=== PATIENT | male | born 1990 | race Caucasian/White ===

== ENCOUNTER 2020-11-25 14:00 | Emergency (ER) | payer OTHER, SELFPAY ==
[2020-11-25 14:06] VITALS: BP 121/60; PULSE 70; RESP 16; TEMP 36.7; O2SAT 97; BMI 27.7
--- NOTE | 2020-11-25 14:24 | ED.CHESTPAIN ---
HPI - Chest Pain General Chief Complaint: Chest Pain Stated Complaint: light headed, SOB, numbness in jaw/tongue, fast HR Time Seen by Provider: 11/25/20 14:20 Source: patient Mode of arrival: Ambulatory Limitations: no limitations History of Present Illness HPI narrative: Otherwise healthy 30-year-old male here for evaluation of several episodes that occurred just today. He states that he was sitting on the couch when he started feel like his heart was beating fast. He states he did feel anxious at the time. Got somewhat lightheaded. Last anywhere from 30 seconds to 1 minute and then completely resolved. It happened several more times since then. Most recently in route here to the emergency department. At the time my evaluation he denies any symptoms. Review of Systems Constitutional Constitutional: Reports system reviewed and no additional complaints, except as documented Cardiovascular Cardiovascular: Reports as per HPI Respiratory Respiratory: Reports as per HPI Gastrointestinal Gastrointestinal: Reports system reviewed and no additional complaints, except as documented Musculoskeletal Musculoskeletal: Reports system reviewed and no additional complaints, except as documented Integumentary/Breasts Skin/Breast: Reports system reviewed and no additional complaints, except as documented Neurologic Neurologic: Reports system reviewed and no additional complaints, except as documented Hematologic/Lymphatic On Anticoagulants: No Allergic/Immunologic Allergic/Immunologic: Reports system reviewed and no additional complaints, except as documented Patient History Medical History Healthy adult tobacco type: vaping alcohol intake frequency: 0-2 drinks per day Substance Use Type: does not use Exam Initial Vital Signs Initial Vital Signs: Vital Signs Temperature 98.1 F 11/25/20 14:06 Pulse Rate 70 11/25/20 14:06 Respiratory Rate 16 11/25/20 14:06 Blood Pressure 121/60 11/25/20 14:06 Pulse Oximetry 97 11/25/20 14:06 Const General: cooperative and healthy appearing HENMT Head: normal to inspection and normocephalic Eyes General: appearance normal, both eyes and all related structures Resp Auscultation: clear to auscultation bilaterally Cardio Rate: regular rate Rhythm: regular rhythm GI Inspection: normal to inspection Skin General: no rashes or lesions noted Neuro General: patient alert, patient awake and patient oriented x3 Extrem General: normal to inspection and capillary refill normal Psych Appearance: grossly normal and well kempt Course Orders Ordered: ED Orders 11/25/20 14:25 XR chest 1V Stat EKG-12 Lead Stat EKG-12 Lead Stat 11/25/20 14:35 Basic Metabolic Panel Stat Complete Blood Count AUTO DIFF Stat Magnesium Stat Troponin & CK Cardiac Panel Stat Vital Signs Vital signs: Vital Signs - 8 hr 11/25/20 14:06 11/25/20 14:41 11/25/20 15:35 Temperature 98.1 F Pulse Rate 70 66 69 Respiratory Rate 16 14 18 Blood Pressure 121/60 130/78 129/62 Pulse Oximetry 97 98 98 MDM - Chest Pain Lab Data Result diagrams: 11/25/20 14:35 11/25/20 14:35 Labs: Lab Results 11/25/20 11/25/20 11/25/20 Range/Units 14:35 14:35 14:35 WBC 5.8 (4.5-11.0) X10^3/uL RBC 4.73 (4.5-5.9) X10^6/uL Hgb 15.7 (13.5-17.5) g/dL Hct 44.9 (41-53) % MCV 94.9 (80-100) fL MCH 33.3 (26-34) PG MCHC 35.1 (30-36) % RDW 12.0 (11.6-14.8) % Plt Count 177 (150-400) X10^3/uL Neut % (Auto) 59.1 (50-75) % Lymph % (Auto) 17.3 L (25-40) % Pershing % (Auto) 9.3 (3-14) % Eos % (Auto) 13.5 H (2-4) % Baso % (Auto) 0.8 (0-2) % Neut # (Auto) 3400 (5872-9003) /uL Lymph # (Auto) 1000 L (5240-2228) /uL Pershing # (Auto) 500 (0-900) /uL Eos # (Auto) 800 H (0-450) /uL Baso # (Auto) 0 (0-100) /uL Sodium 138 (137-145) mmol/L Potassium 3.8 (3.4-5.1) mmol/L Chloride 105 (98-107) mmol/L Carbon Dioxide 24 (22-32) mmol/L BUN 16 (9-20) mg/dL Creatinine 1.05 (0.66-1.25) mg/dL Estimated GFR > 60.0 (>60) mL/min BUN/Creatinine Ratio 15.2 (6-22) Glucose 100 (70-100) mg/dL Calcium 9.6 (8.4-10.2) mg/dL Magnesium 1.9 (1.6-2.3) mg/dL Total Creatine Kinase 50 L (55-170) U/L CK-MB (CK-2) TNP CK-MB (CK-2) Rel Index TNP Troponin I < 0.012 (0.01-0.034) ng/mL Imaging Data Chest x-ray: Radiologist's Impression: [address] [id number] ReportSigned Patient: Matthias GoelMR#: [id number]: 1990Acct:[id number]/Sex: 30 / MDate of Service: 11/25/20Loc: EDAccession Number: [id number] Procedure: XR chest 1V Ordering Provider: Paramjit Tompkins D.O. PROCEDURE: XR CHEST 1V INDICATIONS: chest pain TECHNIQUE: One view of the chest was acquired. COMPARISON: None. FINDINGS: Surgical changes and devices: None. Lungs and pleura: Lungs are clear. No pleural effusions or pneumothorax. Mediastinum: Mediastinal contours appear normal. Heart size is normal. Bones and chest wall: No suspicious bony lesions. Overlying soft tissues appear unremarkable. IMPRESSION: No acute cardiopulmonary findings Dictated by: Jose A Spence M.D. on 11/25/2020 at 14:28 Approved by: Jose A Spence M.D. on 11/25/2020 at 14:29 ECG Data Attestation: I personally reviewed and interpreted this ECG as follows: Interpretation: Sinus rhythm Ventricular rate is 66 Normal axis Normal QRS Normal QTC No ST T wave changes MDM Narrative Medical decision making narrative: Patient has been asymptomatic has not had any ectopy here in the ER. EKG is unremarkable. Labs unremarkable. Will hold on further workup for now discussed with him that he should contact his medical department to discuss the indications for Holter monitor. He was given return precautions and follow-up instructions. He expressed understanding and agreement. Discharge Plan Departure Patient Disposition: Home Clinical Impression: Palpitations Instructions: DI for Palpitations Activity Restrictions/Additional Instructions: Your workup here in the emergency department is very reassuring. I recommend that if your symptoms continue that you talk with your medical department about having a Holter monitor ordered for you. Return to the emergency department for any new or worsening symptoms like we discussed.
[2020-11-25 14:41] VITALS: BP 130/78; PULSE 66; RESP 14; O2SAT 98
[2020-11-25 14:48] LABS: Add Manual Diff / Slide Review NO; Basophils Absolute Auto 0 /uL (0-100); Basophils Percent Auto 0.8 % (0-2); Eosinophils Absolute Auto 800 /uL (0-450); Eosinophils Percent Auto 13.5 % (2-4); Hematocrit 44.9 % (41-53); Hemoglobin 15.7 g/dL (13.5-17.5); Lymphocytes Absolute Auto 1000 /uL (1100-4500); Lymphocytes Percent Auto 17.3 % (25-40); Mean Corpuscular HGB Conc 35.1 % (30-36); Mean Corpuscular Hemoglobin 33.3 PG (26-34); Mean Corpuscular Volume 94.9 fL (80-100); Monocytes Absolute Auto 500 /uL (0-900); Monocytes Percent Auto 9.3 % (3-14); Neutrophils Absolute Auto 3400 /uL (1500-7000); Neutrophils Percent Auto 59.1 % (50-75); Platelet Count 177 X10^3/uL (150-400); Red Blood Cell Count 4.73 X10^6/uL (4.5-5.9); White Blood Cell Count 5.8 X10^3/uL (4.5-11.0)
[2020-11-25 15:00] LABS: BUN Creatinine Ratio 15.2 (6-22); Blood Urea Nitrogen 16 mg/dL (9-20); Calcium 9.6 mg/dL (8.4-10.2); Carbon Dioxide 24 mmol/L (22-32); Chloride 105 mmol/L (98-107); Creatine Kinase 50 U/L (55-170); Estimated Glomerular Filt Rate > 60.0 mL/min (>60); Glucose 100 mg/dL (70-100); HEMOLYSIS < 15 (0-50); Magnesium 1.9 mg/dL (1.6-2.3); Potassium 3.8 mmol/L (3.4-5.1); Sodium 138 mmol/L (137-145)
[2020-11-25 15:12] LABS: Troponin I < 0.012 ng/mL (0.01-0.034)
[2020-11-25 15:35] VITALS: BP 129/62; PULSE 69; RESP 18; O2SAT 98
== END 2020-11-25 15:35 | disposition home or self-care (01) ==
PROVIDERS: Emergency Provider Emergency Medicine
DX: R00.2 Palpitations (principal); R07.9 Chest pain, unspecified
CPT/HCPCS: 36415; 71045; 80048; 82550; 83735; 84484; 85025; 93005; 93010; 99284